=== PATIENT | female | born 2005 | race Two or more races ===

== ENCOUNTER → 2025-06-17 | Outpatient (CLI) | payer MEDICAID ==
[2025-06-17 15:41] LABS: Hematocrit 43.1 % (36.0-46.0); Hemoglobin 14.0 g/dL (12.2-16.2); Mean Corpuscular Hemoglobin 24.4 pg (28.0-32.0); Mean Corpuscular Volume 75.0 fL (80.0-100.0); Nucleated Red Blood Cells % 0.1 %
== END | disposition home or self-care (01) ==
LOC: LAB 15:27
DX: N92.6 Irregular menstruation, unspecified (principal); Z87.42 Personal history of other diseases of the female genital tract
CPT/HCPCS: 36415; 84439; 84443; 85025